=== PATIENT | female | born 1955 | race Two or more races ===

== ENCOUNTER → 2023-04-05 | Outpatient (CLI) | payer MEDICARE, MEDICAID ==
[~2023-04-05] VITALS: Ht 165.1 cm; Wt 72.1 kg
[~2023-04-05] MED LIST: ADENOSINE 61 MG in GIVE UN-DILUTED 0 ML IV ONE
== END | disposition home or self-care (01) ==
LOC: XYW 09:22
PROVIDERS: ATTEND Specialist
DX: I49.3 Ventricular premature depolarization (principal); F41.9 Anxiety disorder, unspecified; R19.7 Diarrhea, unspecified; I10 Essential (primary) hypertension
CPT/HCPCS: 78452; 93017; A9500; J0153